=== PATIENT | female | born 1960 | race Caucasian/White ===

== ENCOUNTER 2019-06-09 15:43 | Observation (INO) ==
[2019-06-09] MEDS ORDERED: ONDANSETRON HCL/PF 2 MG/ML VIAL IV PRN (16:02)
[2019-06-09] MEDS ORDERED: ENOXAPARIN SODIUM 40 MG/0.4 ML SYRG SC SCH (16:15)
[2019-06-09] MEDS: NORMAL SALINE 1,000 ML IV PRN (16:38)
[2019-06-09] MEDS: oxyCODONE HCL/ACETAMINOPHEN 1 TAB TABLET PO PRN (16:41)
[2019-06-09] MEDS ORDERED: FLU VACC QS2019-20(6MOS UP)/PF 60 MCG/0.5 ML SYRINGE IM ONE (16:46)
[2019-06-09 17:29] LABS: Hematocrit 45.1 % (37.0-47.0); Hemoglobin 15.6 gm/dL (12.5-16.0); Mean Cell Volume 88.6 fl (78-100); Mean Corpuscular Hemoglobin 30.6 pg (27-31); Mean Corpuscular Hgb Conc 34.6 g/dl (32-36); Mean Platelet Volume 11.5 fl (8-12.5); Platelet Count 124 K/mm3 (150-450); Red Blood Count 5.09 M/mm3 (4.2-5.4); Red Cell Distribution Width 16.4 % (11.5-14.0); White Blood Count 22.5 K/mm3 (4.0-10.5)
[2019-06-09 17:36] LABS: Total Cells Counted 100
[2019-06-09 17:39] LABS: Albumin * 2.8 gm/dl (3.4-5.0); Anion Gap 17.2 mmol/L (6.8-13.8); BUN/Creatinine Ratio 29.1 (9.0-21.6); Bilirubin, Total 9.5 mg/dL (0.0-1.1); Ca. Corrected For Albumin 11.9 mg/dL (8.4-10.2); Calcium * 11.3 mg/dL (7.9-10.9); Carbon Dioxide 23.4 mmol/L (24-32.6); Potassium 4.6 mmol/L (3.4-4.6); Total Protein 6.8 gm/dL (6.2-8.2)
[2019-06-09 17:40] LABS: Eosinophil 3 % (0-3); Lymphocyte 18 % (20-51); Monocyte 5 % (0-9); Neutrophil 74 % (42-75); Neutrophil # 16.7 K/mm3 (1.3-6.0); Platelet Estimate Decreased (NORMAL)
[2019-06-09 17:41] LABS: Macrocytosis Trace; Target Cells Trace
--- NOTE | 2019-06-09 18:06 | HP ---
Chief Complaint - Chief Complaint Date of Service: 06/09/19 Time of Service: 17:28 Chief Complaint: Weak, short of breath History of Present Illness: Mallika is a 58 yo female that was seen in clinic today to establish care. She was recently seen in the ER with cough and fatigue and imaging showed mass in right lung with masses in liver and adrenal. She was seen at the [facility] last sunday and a biopsy was done, she is still awaiting results. She does not take any medications. She reports over the last week have progressive nausea and vomiting and pain in chest or abdomen. She reports unable to eat for the last three days and is extremely fatigued. She has an appointment with [facility] on Sunday to discuss treatment plans. Medical History (Updated 06/08/19 @ 19:26 by Wilberto Benito DO) Lung cancer Onset Date: 05/2019 Metastatic cancer to liver Onset Date: 05/2019 Metastatic malignant neoplasm to adrenal gland Onset Date: 05/2019 Renal stone Onset Date: Unknown Surgical History: Surgical History (Updated 06/09/19 @ 14:45 by Krupa Griffin RN) History of biopsy Onset Date: 06/02/19 History of cholecystectomy Onset Date: Unknown History of colon surgery Onset Date: Unknown Family History: Family History (Updated 05/28/19 @ 10:32 by Tracie Austin RN) Father Mother Social History: (Last Reviewed 06/09/19 @ 16:25 by Debbie Lance RN) Social History: adopted: No care home: No Marital status: lives independently: No household members: family number of children: 3 current occupational status: employed current occupation: [employer] - currently off on a medical leave of absence Highest education level completed: GED or equivalent Service: No Tobacco: Smoking Status: Former smoker tobacco type: cigarettes Smoking cigarettes per day: 20 Smoking packs per day: 1 Smoking End Date: 05/26/19 how long ago did patient quit smokin days ago Alcohol: alcohol intake: former Substance Use: substance use type: does not use Dietary Habits: caffeine: No Review Of Systems (GEN) - Review of Systems Generalized/Overall Review: Present: Weakness, Malaise, Fatigue. Absent: Chills, Fever EENTM: Present: No Symptoms Reported Respiratory: Present: Cough, Shortness of Breath. Absent: Wheezing Cardiac: Present: Chest Pain. Absent: Edema, Palpitations Abdominal: Present: Nausea, Vomiting, Abdominal Pain. Absent: Constipation, Diarrhea Genitourinary: Present: No Symptoms Reported Musculoskeletal: Present: No Symptoms Reported Neurological: Present: Weakness Skin: Present: No Symptoms Reported Endocrine: Present: No Symptoms Reported Immunizations: IMMUNIZATION HX Immunizations Up to Date Yes History of Influenza Vaccine No Hx Pneumococcal Vaccination No Allergies/Adverse Reactions: Allergies Allergy/AdvReac Type Severity Reaction Status Date / Time ampicillin Allergy Hives Verified 06/09/19 16:25 codeine Allergy Itching Verified 06/09/19 16:25 morphine AdvReac Verified 06/09/19 16:25 Home Medications: HOME MEDICATIONS ALPRAZolam [Xanax] 0.25 mg PO TID PRN #15 tab 05/28/19 [Last Taken Unknown] Ibuprofen 400 mg PO Q6H PRN 06/09/19 [Last Taken Unknown] Exam - Exam Vital Signs: From clinic today: 06/09/19: T-35.9, P-112, R-16, BP-106/62 Constitutional: Present: Oriented x3, Cooperative, Somnolent ENT Exam: Present: normal ENT inspection, hearing grossly normal Eye Exam: bilateral eye: normal inspection Respiratory: Present: lungs clear, normal breath sounds Cardiovascular/Chest: Present: no murmur, tachycardia Peripheral Pulses: radial (R): 2+, radial (L): 2+ Abdomen: Present: Normal bowel sounds, soft, nontender, nondistended Extremity: Present: normal inspection Skin Exam: Present: jaundice - mild, other - Right flank with biopsy site, no erythema or drainage Assessment/Plan - Narrative Narrative: Mallika is a 58yo female with right lung mass and suspicious masses in liver and adrenals. She is currently waiting biopsy results of mass and has been having progressive nausea and in ability to eat for the last few days. Will schedule zofran and give fluids. Will try to get her to eat with scheduled zofran. Will get labs for CBC, CMP, and chest xray to evaluate hypoxia. She was placed on oxygen 2lpm via NC in the clinic due to 88% on room air. With 2lpm of oxygen her sats improved to 94%. Will plan to hydrate overnight and control nausea and plan to discharge her to home tomorrow if nausea is controlled and she is able to eat and her oxygen is stable. I suspect she may have atelectasis due to decreased mobility and weakness. Will treat with cornet and incentive spirometer. Will wean from oxygen as able. - Assessment/Plan (1) Acute respiratory failure with hypoxia Problem: Acute (2) Dehydration Problem: Acute (3) Mass of right lung Problem: Chronic (4) Metastatic disease Problem: Acute
[2019-06-10] MEDS: NORMAL SALINE 1,000 ML IV PRN ×2 (00:31→08:33)
[2019-06-10] MEDS: oxyCODONE HCL/ACETAMINOPHEN 1 TAB TABLET PO PRN ×2 (02:14→07:04)
[2019-06-10] MEDS: HYDROmorphone HCL 2 MG/ML VIAL IV PRN ×2 (07:47→14:21)
[2019-06-10 08:18] LABS: Hematocrit 40.9 % (37.0-47.0); Hemoglobin 13.9 gm/dL (12.5-16.0); Mean Cell Volume 89.9 fl (78-100); Mean Corpuscular Hemoglobin 30.5 pg (27-31); Mean Platelet Volume 11.1 fl (8-12.5); Platelet Count 104 K/mm3 (150-450); Red Blood Count 4.55 M/mm3 (4.2-5.4); Red Cell Distribution Width 17.1 % (11.5-14.0); White Blood Count 26.4 K/mm3 (4.0-10.5)
[2019-06-10 08:23] LABS: Total Cells Counted 100
[2019-06-10 08:30] LABS: Albumin * 2.5 gm/dl (3.4-5.0); Anion Gap 18.5 mmol/L (6.8-13.8); BUN/Creatinine Ratio 30.4 (9.0-21.6); Ca. Corrected For Albumin 11.3 mg/dL (8.4-10.2); Calcium * 10.4 mg/dL (7.9-10.9); Carbon Dioxide 21.1 mmol/L (24-32.6); Potassium 4.6 mmol/L (3.4-4.6); Total Protein 6.1 gm/dL (6.2-8.2)
[2019-06-10 08:49] LABS: Atypical (Reactive) Lymph 2 % (0-2); Band 7 % (0-2.0); Eosinophil 2 % (0-3); Lymphocyte 6 % (20-51); Monocyte 4 % (0-9); Neutrophil 79 % (42-75); Neutrophil # 20.9 K/mm3 (1.3-6.0); Platelet Estimate Decreased (NORMAL)
[2019-06-10 08:51] LABS: Target Cells 1+; Toxic Granulation Trace
[2019-06-10 08:52] LABS: Polychromasia Trace
[2019-06-10] MEDS ORDERED: KETOROLAC TROMETHAMINE 30 MG/ML VIAL IV PRN (12:28)
[2019-06-10 13:23] LABS: Urine Bilirubin 6 mg/dl (NEGATIVE); Urine Blood Negative /ul (NEGATIVE); Urine Ketone Negative (NEGATIVE); Urine Nitrite Negative (NEGATIVE); Urine Protein 15 mg/dL (NEGATIVE); Urine Specific Gravity 1.025 SP.GR. (1.005-1.010)
[2019-06-10 13:34] LABS: Urine Appearance Clear (CLEAR); Urine Bacteria 1+; Urine Color Dark Yellow; Urine RBC None Seen /hpf (0-5); Urine WBC 0-5 /hpf (0-5)
[2019-06-10] MEDS ORDERED: PIPERACILLIN SODIUM/TAZOBACTAM 3.375 GM in DEXTROSE 5 % IN WATER 100 ML IV SCH ×2 (16:15)
--- NOTE | 2019-06-10 16:26 | DS ---
Transfer Discharge Summary - Diagnosis(s)/Problems (1) Acute respiratory failure with hypoxia Problem: Acute (2) Dehydration Problem: Acute (3) Mass of right lung Problem: Chronic (4) Metastatic disease Problem: Acute (5) Elevated bilirubin Problem: Acute - Course Description of Stay: Mallika is a 58 yo female that was recently diagnosed with right lung, liver, and adrenal masses. 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 She was doing better after hospitalized at [facility] last week, but over the last few days she had progressive weakness and loss of appetite. She presented to my clinic yesterday to establish care. This was my first meeting with Brynn and she was extremely fatigued and appeared dehydrated with mild hypotension and tachycardia. She was admitted with the plan to hydrate and discharge the following day to make her oncology appointment on Sun. Bloodwork obtained showed leukocytosis, elevated liver enzymes, and elevated bilirubin that were suspected to be secondary to cancer. It was hope that these would improve with hydration. These labs were repeated after receiving fluids overnight and were relatively unchanged with the exception of WBC worsening from 22k to 26k. Bilirubin also increased from 9.5 to 10. She has not had focal RUQ abdominal pain or fever. She is mildly jaundiced. As bloodwork was not improved and she remains clinically unchanged with extreme fatigue, weakness, and diffuse pain that is only controlled with IV dilaudid discussed with [facility] for transfer for consideration of chemotherapy vs ERCP to evaluate elevated liver enzymes/bilirubin. This care cannot be obtained at any closer facilities. [facility] accepted transfer and requested she receive a dose of cefotetan. Unfortunately we do not carry cefotetan and she was given a dose of zosyn. She will be transferred up by Ambulance. Procedures Performed: none - Results and Findings Results and Findings: Laboratory Results - last 24 hr 06/09/19 06/09/19 06/10/19 17:16 17:16 08:13 WBC 22.5 H 26.4 H RBC 5.09 4.55 Hgb 15.6 13.9 Hct 45.1 40.9 MCV 88.6 89.9 MCH 30.6 30.5 MCHC 34.6 34.0 RDW 16.4 H 17.1 H Plt Count 124 L 104 L MPV 11.5 11.1 Neutrophils % (Manual) 74 79 H Band Neuts % (Manual) 7 H Lymphocytes % (Manual) 18 L 6 L Monocytes % (Manual) 5 4 Eosinophils % (Manual) 3 2 Neutrophils # (Manual) 16.7 H 20.9 H Lymphocytes # (Manual) 4.1 H 1.6 Monocytes # (Manual) 1.1 H 1.1 H Eosinophils # (Manual) 0.7 0.5 Nucleated RBCs 2.0 H Atypic/Reactive Lymphs 2 Toxic Granulation Trace Platelet Estimate Decreased L Decreased L Polychromasia Trace Macrocytosis Trace Target Cells Trace 1+ Sodium 135 Plasma Sodium 135 Potassium 4.6 Chloride 99 Carbon Dioxide 23.4 L Anion Gap 17.2 H BUN 37 H D Creatinine 1.27 Est GFR (Non-Af Amer) 46 L D BUN/Creatinine Ratio 29.1 H Random Glucose 113 H Calcium 11.3 H Calcium Adj for Albumin 11.9 H Total Bilirubin 9.5 H GGT AST 505 H ALT 154 H Alkaline Phosphatase 405 H Total Protein 6.8 Albumin 2.8 L Urine Color Urine Appearance Urine pH Ur Specific Bryan Urine Protein Urine Glucose (UA) Urine Ketones Urine Blood Urine Nitrate Urine Bilirubin Urine Ictotest Prot Sulfosalicylic Acd Urine Urobilinogen Ur Leukocyte Esterase Urine RBC Urine WBC Ur Epithelial Cells Urine Bacteria WBC Casts 06/10/19 06/10/19 08:13 12:05 WBC RBC Hgb Hct MCV MCH MCHC RDW Plt Count MPV Neutrophils % (Manual) Band Neuts % (Manual) Lymphocytes % (Manual) Monocytes % (Manual) Eosinophils % (Manual) Neutrophils # (Manual) Lymphocytes # (Manual) Monocytes # (Manual) Eosinophils # (Manual) Nucleated RBCs Atypic/Reactive Lymphs Toxic Granulation Platelet Estimate Polychromasia Macrocytosis Target Cells Sodium 137 Plasma Sodium 137 Potassium 4.6 Chloride 102 Carbon Dioxide 21.1 L Anion Gap 18.5 H BUN 35 H Creatinine 1.15 Est GFR (Non-Af Amer) 52 L BUN/Creatinine Ratio 30.4 H Random Glucose 90 Calcium 10.4 Calcium Adj for Albumin 11.3 H Total Bilirubin 10.0 H GGT 582 H AST 484 H ALT 147 H Alkaline Phosphatase 361 H Total Protein 6.1 L Albumin 2.5 L Urine Color Dark yellow Urine Appearance Clear Urine pH 6.0 Ur Specific Bryan 1.025 Urine Protein 15 H Urine Glucose (UA) Negative Urine Ketones Negative Urine Blood Negative Urine Nitrate Negative Urine Bilirubin 6 H Urine Ictotest Positive H Prot Sulfosalicylic Acd Negative Urine Urobilinogen 2.0 H Ur Leukocyte Esterase Negative Urine RBC None seen Urine WBC 0-5 Ur Epithelial Cells 10-25 H Urine Bacteria 1+ H WBC Casts 0-5 H - Medications Medications: Active Medications Enoxaparin Sodium (Lovenox) 40 mg SC Q24H YESSENIA Stop: 07/09/19 16:16 Last Admin: 06/09/19 16:42 Dose: 40 mg Documented by: Hydromorphone HCl (Dilaudid) 2 mg IV Q4H PRN PRN Reason: Severe Pain (pain scale 7-10) Stop: 07/10/19 07:46 Last Admin: 06/10/19 14:21 Dose: 2 mg Documented by: Sodium Chloride (Sodium Chloride 0.9%) 1,000 mls @ 125 mls/hr IV .Q8H PRN PRN Reason: HYDRATION Stop: 07/09/19 16:03 Last Admin: 06/10/19 08:33 Dose: 125 mls/hr Documented by: Ketorolac Tromethamine (Toradol) 30 mg IV Q6H PRN PRN Reason: Moderate Pain (pain scale 4-6) Stop: 06/15/19 12:29 Last Admin: 06/10/19 12:38 Dose: 30 mg Documented by: Discontinued Medications Influenza Virus Vaccine Quadrival (Flulaval Quad [id number] Syringe) 60 mcg IM .ONCE ONE Stop: 06/09/19 16:47 Last Admin: 06/09/19 17:27 Dose: 60 mcg Documented by: Oxycodone/Acetaminophen (Percocet 5 Mg/325 Mg) 1 tab PO Q4H PRN PRN Reason: Moderate Pain (pain scale 4-6) Stop: 07/09/19 16:03 Last Admin: 06/10/19 07:04 Dose: 1 tab Documented by: - Disposition Disposition: Short Term Hospital Inpatient Condition: Poor Discharge Date: 06/10/19 Discharge Time: 16:25
[2019-06-10 17:17] VITALS: BP 126/87
== END 2019-06-10 17:00 | disposition short-term general hospital (02) ==
LOC: MS
PROVIDERS: ADMIT Family Medicine; ATTEND Family Medicine
CPT/HCPCS: 36415; 71010; 71045; 80053; 81001; 82977; 85025; 90686; 96365; 96372; 96375; G0378; G0379